=== PATIENT | male | born 1980 | race Hispanic/Latino ===

== ENCOUNTER 2019-06-18 15:06 | Emergency (ER) | payer OTHER ==
[~2019-06-18 15:06] MED LIST: CEPH500B PO; ESOM40CA PO; NAPR-1023 PO; TRAM50TA4 PO
[2019-06-18 15:36] LABS: BASOPHILS % (AUTO) 0.4 % (0.0-5.0); EOSINOPHILS % (AUTO) 2.6 % (0.0-8.0); HEMATOCRIT 46.6 % (42-54); LYMPHOCYTES % (AUTO) 45.5 % (21.0-51.0); MEAN CORPUSCULAR HEMOGLOBIN 30.4 pg (27.0-33.0); MEAN CORPUSCULAR HGB CONC 33.7 g/dL (32.0-36.0); MEAN CORPUSCULAR VOLUME 90.2 fL (79-99); MONOCYTES % (AUTO) 6.4 % (3.0-13.0); NEUTROPHILS % (AUTO) 45.1 % (40.0-77.0); NUCLEATED RED BLOOD CELLS 0.1 % (0.0-0.19); PLATELET COUNT (AUTO) 251 K/uL (130-400); RED BLOOD CELL COUNT(AUTO) 5.17 MIL/uL (4.50-6.20); RED CELL DISTRIBUTION WIDTH 13.4 % (11.0-15.5); WHITE BLOOD COUNT (AUTO) 7.2 K/uL (4.8-10.8)
[2019-06-18 15:42] LABS: APPEARANCE,URINE Clear (CLEAR); BILIRUBIN,URINE Negative (NEGATIVE); COLOR,URINE Yellow (YELLOW); GLUCOSE, URINE (UA) Negative (NEGATIVE); KETONES,URINE Negative (NEGATIVE); LEUKOCYTE ESTERASE ,URINE Negative (NEGATIVE); NITRATE,URINE Negative (NEGATIVE); OCCULT BLOOD,URINE Negative (NEGATIVE); PH,URINE 5.5 (5.0-8.0); PROTEIN,URINE Negative (NEGATIVE)
[2019-06-18] MEDS ORDERED: SODIUM CHLORIDE 0.9% 1000ML 1,000 ML IV ONE (15:49)
[2019-06-18] MEDS ORDERED: HYOSCYAMINE SULFATE 0.125 MG TAB.SUBL SL ONE (16:42)
[2019-06-18 16:59] LABS: CREATININE 1.3 mg/dL (0.5-1.5); POTASSIUM 4.3 mmol/L (3.5-5.1)
[2019-06-18 17:06] LABS: ALBUMIN 4.4 g/dL (3.5-5.0); BILIRUBIN,TOTAL 0.7 mg/dL (0.2-1.0); TOTAL PROTEIN, SERUM 7.6 g/dL (6.0-8.3)
== END 2019-06-18 16:55 | disposition home or self-care (01) ==
LOC: EDH 15:06
DX: R10.84 Generalized abdominal pain (principal); Z90.49 Acquired absence of other specified parts of digestive tract; Z98.890 Other specified postprocedural states
CPT/HCPCS: 36415; 74176; 80053; 81003; 82150; 83690; 85025; 99285; J7030

== ENCOUNTER → 2021-12-05 | Outpatient (CLI) | payer OTHER ==
[~2021-12-05] MED LIST changes: +GADOTERATE MEGLUMINE 10 MMOL/20 ML VIAL IV ONE
== END | disposition home or self-care (01) ==
LOC: RAH 09:29
PROVIDERS: ATTEND Internal Medicine Gastroenterology
DX: R93.3 Abnormal findings on diagnostic imaging of other parts of digestive tract (principal)
CPT/HCPCS: 74183; A9575

== ENCOUNTER → 2024-04-11 | Outpatient (CLI) | payer OTHER ==
[~2024-04-11] MED LIST changes: -GADOTERATE MEGLUMINE 10 MMOL/20 ML VIAL IV ONE; +IOHEXOL 350 MG/ML 100ML INFUS..BTL IV ONE
== END | disposition home or self-care (01) ==
LOC: RAH 10:53
PROVIDERS: ATTEND Internal Medicine
DX: R10.9 Unspecified abdominal pain (principal); M47.816 Spondylosis without myelopathy or radiculopathy, lumbar region
CPT/HCPCS: 74178; Q9967

== ENCOUNTER 2025-08-20 02:56 | Emergency (ER) | payer OTHER ==
[~2025-08-20] VITALS: Ht 177.8 cm; Wt 93.0 kg
[~2025-08-20 02:56] MED LIST changes: -IOHEXOL 350 MG/ML 100ML INFUS..BTL IV ONE; -NAPR-1023 PO; +NAPR-1194 PO
--- NOTE | 2025-08-20 03:02 | ERN ---
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 Yesterday felt his chest was little tight and stated he had difficulty taking a full breath. Today the symptom remained and in addition he started to feel numbness tingling and tightness in his left arm. He comes in for evaluation. Fevers or chills states his urine is yellow. Allergies: Coded Allergies: acetaminophen (Unverified Allergy, Unknown, NAUSEA, VOMITING, SWEATING, 06/14/15) hydrocodone (Unverified Allergy, Unknown, NAUSEA, VOMITING, SWEATING, 06/14/15) Home Meds Active Scripts Tramadol Hcl (Tramadol HCl) 50 Mg Tablet, 50-100 MG PO Q6H for PAIN, #90 TAB 1 Refill Prov:CHRISTI KWAN MD 05/21/18 Naproxen (Naproxen) 500 Mg Tablet, 500 MG PO BIDMEALS, #60 TAB 1 Refill Prov:CHRISTI KWAN MD 05/21/18 Cephalexin Monohydrate (Keflex) 500 Mg Cap, 500 MG PO Q8H, #7 CAP Prov:CHRISTI KWAN MD 05/21/18 Reported Medications Esomeprazole Magnesium (Nexium) 40 Mg Capsule.dr, 40 MG PO DAILY PRN for INDIGESTION, CAP 05/20/18 Constitutional: (-) chills, (-) diaphoresis, (-) fever, (-) malaise, (-) weakness, (-) other documentation EENTM: (-) eye pain, (-) blurred vision, (-) tearing, (-) double vision, (-) ear pain, (-) ear discharge, (-) nose pain, (-) nose congestion, (-) throat pain, (-) Throat swelling, (-) mouth pain, (-) tooth pain, (-) mouth swelling, (-) other documentation Respiratory: (-) cough, (-) orthopnea, (-) short of breath, (-) stridor, (-) wheezing, (-) other documentation Cardiovascular: (+) other documentation (Chest feels tight when he takes a full breath) Gastrointestinal/Abdominal: (-) nausea, (-) vomiting, (-) diarrhea, (-) abdominal pain, (-) abdominal distention, (-) constipation, (-) rectal bleeding, (-) dark stool/melena, (-) other documentation Genitourinary: (-) penile discharge, (-) dysuria, (-) frequency, (-) hematuria, (-) pain, (-) other documentation Musculoskeletal: (-) Neck pain, (-) back pain, (-) Flank Pain, (-) joint pain, (-) joint swelling, (-) muscle pain, (-) muscle stiffness, (-) gout, (-) other documentation Physical Exam General Appearance: (+) no apparent distress Orientation: (+) alert, (+) oriented x 3 Head/Face Trauma: No Eye: bilateral eye normal inspection, bilateral eye PERRL, bilateral eye EOMI Ear, Nose, Throat: (+) hearing grossly normal, (+) normal ENT inspection, (+) moist mucous membraine, (+) normal pharynx Neck: (+) normal inspection, (+) supple, (+) full range of motion Respiratory: (+) chest non-tender, (+) lungs clear, (+) well ventilated Heart: (+) regular, (+) no gallop Vascular: (+) no edema, (+) normal peripheral pulse, (+) no JVD Gastrointestinal: (+) soft, (+) non-tender, (+) bowel sound present Results Laboratory and Microbiology Lab and Micro Result Laboratory Tests Test 08/20/25 03:05 08/20/25 03:15 White Blood Count 9.0 K/uL (4.8-10.8) Red Blood Count 5.05 MIL/uL (4.50-6.20) Hemoglobin 15.2 g/dL (14.0-18.0) Hematocrit 44.7 % (42-54) Mean Corpuscular Volume 88.5 fL (79-99) Mean Corpuscular Hemoglobin 30.1 pg (27.0-33.0) Mean Corpuscular Hemoglobin Concent 34.0 g/dL (32.0-36.0) Red Cell Distribution Width 12.7 % (11.0-15.5) Platelet Count 284 K/uL (130-400) Mean Platelet Volume 9.7 fL (7.5-10.5) Immature Granulocyte % (Auto) 0.6 % (0-1) Neutrophils (%) (Auto) 41.1 % (40.0-77.0) Lymphocytes (%) (Auto) 47.0 % (21.0-51.0) Monocytes (%) (Auto) 7.4 % (3.0-13.0) Eosinophils (%) (Auto) 3.6 % (0.0-8.0) Basophils (%) (Auto) 0.3 % (0.0-5.0) Neutrophils # (Auto) 3.7 K/uL (1.8-7.7) Lymphocytes # (Auto) 4.2 K/uL (1.0-4.8) Monocytes # (Auto) 0.7 K/uL (0.1-1.0) Eosinophils # (Auto) 0.32 K/uL (0.00-0.70) Basophils # (Auto) 0.03 K/uL (0.00-0.20) Absolute Immature Granulocyte (auto 0.05 K/uL (0-1) Nucleated Red Blood Cells 0.0 % (0.0-0.19) Sodium Level 140 mmol/L (136-145) Potassium Level 3.7 mmol/L (3.5-5.1) Chloride Level 104 mmol/L (101-111) Carbon Dioxide Level 27 mmol/L (21-32) Blood Urea Nitrogen 15 mg/dL (7-18) Creatinine 1.0 mg/dL (0.5-1.3) Glomerular Filtration Rate Calc 94 mL/min (>90) Random Glucose 97 mg/dL (70-105) Total Calcium 8.7 mg/dL (8.5-10.1) Total Creatine Kinase 82 U/L (21-232) # Troponin I High Sensitivity 7 ng/L (4-75) Urine Color LIGHT-YELLOW (YELLOW) Urine Appearance CLEAR (CLEAR) Urine pH 5.5 (5.0-8.0) Urine Specific [place] 1.022 (1.001-1.031) Urine Protein NEGATIVE mg/dL (NEGATIVE) Urine Glucose (UA) NEGATIVE mg/dL (NEGATIVE) Urine Ketones NEGATIVE mg/dL (NEGATIVE) Urine Occult Blood +- (TRACE) (NEGATIVE) H Urine Nitrate NEGATIVE (NEGATIVE) Urine Bilirubin NEGATIVE mg/dL (NEGATIVE) Urine Urobilinogen 0.2 mg/dL (0.2-1.0) Urine Leukocyte Esterase 25 [place]/uL (NEGATIVE) H Urine RBC 2-5 /HPF (0-1) H Urine WBC 6-10 /HPF (0-1) H Urine Squamous Epithelial Cells RARE /HPF (0-2) Urine Bacteria None /HPF (None Seen) Urine Hyaline Casts 2-5 /LPF (0-1 /LPF) H MDM MDM: Differential diagnosis: Acute NV, pleurisy, dehydration, asthma Rationale: Tests considered and ordered secondary to shared decision making include: Previous outside records reviewed: Old ER visits. Risk of complication and/or morbidity or mortality of patient management: None Medications-Per medication reconciliation Need for hospitalization: Patient does meet criteria for hospitalization. Need for emergency major/minor surgery: No There are no social concerns with this patient. Prescription drug management Prescriptions will include symptomatic care Patient's prior external medical records from other ER visits were reviewed by me as indicated. Prior testing and results from previous visits were reviewed. Prior tests were taken into account with medical decision making and resource utilization, independent historian/historians were used to obtain complete medical history. I independently interpreted the test that were performed, results were reviewed by me and considered findings on radiology if ordered. Patient's CBC is normal patient's chemistry panel is normal patient's urine shows a little bit of blood as well as some mild esterase activity. Fluids did not improve the patient's chest tightness. He wonders if he has GERD. I gave him a GI cocktail and it did not help his symptoms. On further questioning it seems he may have a hiatal hernia. Going to order a CT abdomen pelvis with a an mother contrast to see if he has a hiatal hernia but also to evaluate if he has nephrolithiasis causing the blood in his urine. Patient's CT scan showed no stones anywhere. I did not appreciate any masses in his bladder either. If the patient does have a hiatal hernia it is very small. ED Course Orders Procedure Category Date Status Time Vital Signs Per CPOE 08/20/25 Transmitted Routine 03:03 Chest 1vw RAD 08/20/25 Resulted 03:03 12 Lead Ekg Tracing- EKG 08/20/25 Logged Technical 03:03 Oxygen By Nc/Pulse Ox CPOE 08/20/25 Transmitted 03:03 Maintain Iv CPOE 08/20/25 Transmitted 03:03 Iv Insertion CPOE 08/20/25 Transmitted 03:03 Cardiac Monitoring CPOE 08/20/25 Transmitted 03:03 Pulse Oximetry With CPOE 08/20/25 Transmitted Vs And Prn 03:03 Cbc With Differential LAB 08/20/25 Complete 03:03 Activity: Br W/Brp CPOE 08/20/25 Transmitted With Assist 03:03 Creatine Kinase, Total LAB 08/20/25 Complete 03:03 Troponin I High LAB 08/20/25 Complete Sensitivity 03:03 Urinalysis Profile LAB 08/20/25 Complete 03:03 Basic Metabolic Panel LAB 08/20/25 Complete 03:03 Orphenadrine Citrate PHA 08/20/25 Complete (Norflex) 03:30 Lactated Ringers PHA 08/20/25 Complete 1000ml (Lactated 03:11 Culture Urine DULCE 08/20/25 In Process 03:42 Lidocaine Hcl 2% PHA 08/20/25 Complete Viscous (Lidocaine Hcl 04:00 Mag/Alum/Simeth 30ml PHA 08/20/25 Complete (Maalox Plus 30ml) 04:00 Dicyclomine Hcl PHA 08/20/25 Complete (Bentyl 10mg/5ml 04:00 Ct Abdomen/Pelvis CT 08/20/25 Taken W/Wo Contras 04:24 Iohexol (Omnipaque) PHA 08/20/25 Complete 04:54 Current Medications Medications (Trade) Dose Ordered Sig/Adam Route PRN Reason Start Time Stop Time Status Last Admin Dose Admin Al Hydroxide/Mg Hydroxide (MAALox PLUS 30ML) 30 ml ONCE ONCE PO 08/20/25 04:00 08/20/25 04:01 DC 08/20/25 04:00 Dicyclomine HCl (Bentyl 10mg/5ml Syrup) 10 mg ONCE ONCE PO 08/20/25 04:00 08/20/25 04:01 DC 08/20/25 04:01 Iohexol (Omnipaque) 35,000 mg STK-MED ONCE IV 08/20/25 04:54 08/20/25 04:54 DC Lactated Ringer's (Lactated Ringers 1000ml) 1,000 ml BOLUS STAT IV 08/20/25 03:11 08/20/25 03:16 DC 08/20/25 03:23 Lidocaine HCl (Lidocaine HCl 2% Viscous) 10 ml ONCE ONCE PO 08/20/25 04:00 08/20/25 04:01 DC 08/20/25 04:01 Orphenadrine Citrate (Norflex) 60 mg ONCE ONCE IVP 08/20/25 03:30 08/20/25 03:31 DC 08/20/25 03:22 Vital Signs Date Time Temp Pulse Resp B/P (MAP) Pulse Ox O2 Delivery O2 Flow Rate FiO2 08/20/25 05:26 45 18 144/70 98 Room Air* 0 21 08/20/25 03:54 48 16 140/80 98 Room Air* 0 21 08/20/25 03:03 98.4 68 18 152/78 98 Room Air* 0 21 08/20/25 02:58 97.9 59 16 142/84 97 Room Air DX & DISP Disposition: Discharge Departure Impression: Primary Impression: Atypical chest pain Condition: Stable Additional Instructions: I could not find the reason for the pain in your chest the way describe it I do think it is either musculoskeletal or possibly a hiatal hernia which was not obvious on a CT scan. I recommend stretching exercises to help mobilize that area. Drink plenty of fluids to help as well. If this pain continues to bother you please follow-up with her primary care physician. Based on the EKG and they cardiac enzymes we nate I feel very confident that this pain is not coming from your heart. Referrals: MILENA POPE (PCP) LEANA AC MD Aug 20, 2025 03:02
[2025-08-20 03:21] LABS: IMMATURE GRANULOCYTE ABSOLUTE 0.05 K/uL (0-1); NUCLEATED RED BLOOD CELLS 0.0 % (0.0-0.19); PLATELET COUNT (AUTO) 284 K/uL (130-400); RED BLOOD CELL COUNT(AUTO) 5.05 MIL/uL (4.50-6.20); RED CELL DISTRIBUTION WIDTH 12.7 % (11.0-15.5); WHITE BLOOD COUNT (AUTO) 9.0 K/uL (4.8-10.8)
[2025-08-20] MEDS: ORPHENADRINE 60MG/2ML IVP ONE (03:22)
[2025-08-20] MEDS: LACTATED RINGERS 1000ML IV STA (03:23)
[2025-08-20 03:33] LABS: CREATINE KINASE, TOTAL 82.0 U/L (21-232); CREATININE 1.0 mg/dL (0.5-1.3); GLOMERULAR FILTR. RATE CALC 94.0 mL/min (>90); GLUCOSE,RANDOM 97.0 mg/dL (70-105); SODIUM SERUM 140.0 mmol/L (136-145); UREA NITROGEN, BLOOD 15.0 mg/dL (7-18)
[2025-08-20 03:34] LABS: APPEARANCE,URINE CLEAR (CLEAR); GLUCOSE, URINE (UA) NEGATIVE (NEGATIVE); LEUKOCYTE ESTERASE ,URINE 25 Leu/uL (NEGATIVE); NITRATE,URINE NEGATIVE (NEGATIVE); OCCULT BLOOD,URINE +- (TRACE) (NEGATIVE)
[2025-08-20 03:40] LABS: ADD UA MICROSCOPIC YES
[2025-08-20 03:41] LABS: SQUAMOUS EPITHELIAL CELL,UR RARE /HPF (0-2)
[2025-08-20] MEDS: MAG/ALUM/SIMETH 30 ML UDCUP PO ONE (04:00)
[2025-08-20] MEDS: LIDOCAINE HCL 2% VISCOUS 15 ML UDCUP PO ONE (04:01)
[2025-08-20] MEDS: DICYCLOMINE HCL 10 MG/5 ML ML PO ONE (04:01)
--- NOTE | 2025-08-20 04:01 | HMCIMG ---
EXAM: CR Chest, 1 View. CLINICAL HISTORY: CHEST PAIN. COMPARISON: 12/11/15. FINDINGS: LUNGS: The lungs show no infiltrate or other acute finding. PLEURAL SPACES: No pleural effusion or pneumothorax. MEDIASTINUM: Cardiac size and mediastinal contours are within normal limits. BONES: No aggressive appearing osseous lesion. IMPRESSION: No acute cardiopulmonary pathology is evident. No interval change. /[place]
[2025-08-20] MEDS ORDERED: IOHEXOL 350 MG/ML 100ML INFUS..BTL IV ONE (04:54)
--- NOTE | 2025-08-20 05:48 | HMCIMG ---
EXAM: CT Abdomen and Pelvis without and with IV contrast CLINICAL HISTORY: Hiatal hernia. TECHNIQUE: Thin collimated axial CT images of the abdomen and pelvis were obtained with sagittal and coronal reformatted images also submitted. CT scan is done according to ALARA (As Low As Reasonably Achievable). COMPARISON: None. FINDINGS: Unremarkable visualized lung parenchyma. No focal abnormality within the gallbladder, pancreas, spleen, adrenals, or kidneys. A small 4 mm cyst in the left lobe of the liver. There is no obvious bowel wall thickening. Bowel loops are normal in caliber without evidence of obstruction or ileus. The appendix is surgically removed. A component of mild constipation is present in the colon. Mild diffuse wall thickening of the partially distended urinary bladder, concerning mild cystitis. Unremarkable reproductive organs. Abdominal and pelvic vessels are patent. No lymphadenopathy. No free fluid. There is no acute osseous abnormality. Grade 1 anterolisthesis with bilateral chronic spondylolysis at the L5-S1 level with degenerative disc disease. IMPRESSIONS: No acute process in the abdomen or pelvis. No hiatal hernia is evident on this study. Mild diffuse wall thickening of the partially distended urinary bladder, concerning mild cystitis. A component of mild constipation is present in the colon. Grade 1 anterolisthesis with bilateral chronic spondylolysis at the L5-S1 level with degenerative disc disease. /[place]
[2025-08-20 05:54] VITALS: BP 127/76; PULSE 47; RESP 17; TEMP 98.4; O2SAT 97
--- NOTE | 2025-08-20 06:57 | EKG ---
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
== END 2025-08-20 06:06 | disposition home or self-care (01) ==
LOC: EDH 02:56
DX: R07.89 Other chest pain (principal); R20.0 Anesthesia of skin; R20.2 Paresthesia of skin; Z88.5 Allergy status to narcotic agent; Z88.6 Allergy status to analgesic agent
CPT/HCPCS: 99285; 74178; 96374; 96361; 71045; 82550; 84484; 80048; 85025; 87086; 81001; 36415; 93005; J7120; Q9967; J2360